=== PATIENT | male | born 1985 | race Caucasian/White ===

== ENCOUNTER 2016-12-29 13:07 | Outpatient (CLI) | payer OTHER | END 2016-12-29 13:08 | disposition home or self-care (01) | DX: F51.8 Other sleep disorders not due to a substance or known physiological condition (principal); R06.83 Snoring ==

== ENCOUNTER 2017-01-22 21:55 | Outpatient (CLI) | payer OTHER | END 2017-01-22 21:56 | disposition home or self-care (01) | DX: F51.8 Other sleep disorders not due to a substance or known physiological condition (principal) ==

== ENCOUNTER 2017-02-10 15:19 | Outpatient (CLI) | payer OTHER | END 2017-02-10 15:20 | disposition home or self-care (01) | DX: F51.8 Other sleep disorders not due to a substance or known physiological condition (principal); R06.83 Snoring ==